=== PATIENT | male | born 1970 | race Caucasian/White ===

== ENCOUNTER 2018-11-01 16:43 | Inpatient (IN) | payer OTHER ==
--- NOTE | 2018-11-01 17:12 | ED ---
SOB HPI - General Chief Complaint: Shortness of Breath Stated Complaint: low oxygen Time Seen by Provider: 11/01/18 16:52 Source: patient Mode of arrival: ambulatory Limitations: no limitations - History of Present Illness Initial Comments: Dictation was produced using Create dictation software. please excuse any grammatical, word or spelling errors. Chief Complaint: Patient is a 48-year-old male sent in from urgent care for hypoxia. History of Present Illness: She is a 48-year-old male. He denies any comorbidities. Patient states for the last week has been feeling short of breath. Patient states he feels a little congested in his chest. He went to the urgent care today to be evaluated. They saw that his initial vitals showed 94% on room oxygen. Patient is given a breathing treatment. They repeated his oxygen saturation with the level of 92%. They did do a rapid strep test which was found to be negative. He was given a prescription for nystatin. They did not do any further workup. He was rapidly sent to the emergency department. Patient is still slightly short of breath. Patient denies any recent travel. Denies any history of blood clots. No lower extremity symptoms. Patient denies any chest pain. Patient has no family history of blood clot. The ROS documented in this emergency department record has been reviewed and confirmed by me. Those systems with pertinent positive or negative responses have been documented in the HPI. All other systems are other negative and/or noncontributory. PHYSICAL EXAM: General Impression: Alert and oriented x3, not in acute distress HEENT: Normocephalic atraumatic, extra-ocular movements intact, pupils equal and reactive to light bilaterally, mucous membranes moist. white ulcerations to the bilateral tonsils Cardiovascular: Heart regular rate and rhythm, S1&S2 audible, no murmurs, rubs or gallops Chest: Lungs clear to auscultation bilaterally, no rhonchi, no wheeze, no rales Abdomen: Bowel sounds present, abdomen soft, non-tender, non-distended, no organomegaly Musculoskeletal: Pulses present and equal in all extremities, no peripheral edema Motor: Power 5/5 bilaterally, no focal deficits noted Neurological: CN II-XII grossly intact, no focal motor or sensory deficits noted Skin: Intact with no visualized rashes Psych: Normal affect and mood ED course: 48-year-old male transferred from urgent care for hypoxia. Patient chief complaint is shortness of breath and chest congestion. Upon arrival shows 92% on room air. Patient appears comfortable at this time. Patient's heart rate is 95 Laboratory evaluation obtained. D-dimer 0.55. Patient is fully positive. Metabolic panel is unremarkable. Chest x-ray shows interstitial infiltrates showing mild pulmonary edema versus atypical pneumonitis. Patient does not appear to be in respiratory distress. Believe this is viral pneumonitis. Patient oxygen saturation mildly decreased. There is suspicion that this may be pneumonia. Patient given azithromycin. Patient be admitted for hypoxic respiratory failure. At this point pulmonary embolism is less likely given that he is fully positive and has positive x-ray findings. EKG interpretation: Ventricular rate 89, normal sinus rhythm, RI interval 1:30, QS 90, QTc 440. No RI prolongation, no QTC prolongation, no ST or T-wave changes noted. Overall, this EKG is unremarkable - Related Data Home Medications Medication Instructions Recorded Confirmed Nystatin 100,000 Unit/ml Susp 500,000 unit PO QID 11/01/18 11/01/18 [Mycostatin Oral Susp] Allergies Allergy/AdvReac Type Severity Reaction Status Date / Time No Known Allergies Allergy Verified 11/01/18 17:29 Review of Systems ROS Statement: Those systems with pertinent positive or pertinent negative responses have been documented in the HPI. ROS Other: All systems not noted in ROS Statement are negative. Past Medical History Past Medical History: No Reported History History of Any Multi-Drug Resistant Organisms: None Reported Past Surgical History: No Surgical Hx Reported Past Psychological History: No Psychological Hx Reported Smoking Status: Never smoker Past Alcohol Use History: None Reported Past Drug Use History: None Reported General Exam Limitations: no limitations Course Vital Signs 11/01/18 11/01/18 11/01/18 16:46 18:20 18:21 Temperature 97.7 F Pulse Rate 95 78 Respiratory 24 18 Rate Blood Pressure 149/85 136/85 O2 Sat by Pulse 92 L 88 L 96 Oximetry 11/01/18 19:47 Temperature 98.9 F Pulse Rate 80 Respiratory 15 Rate Blood Pressure 126/71 O2 Sat by Pulse 91 L Oximetry Medical Decision Making - Lab Data Result diagrams: 11/01/18 17:53 Lab Results 11/01/18 11/01/18 11/01/18 Range/Units 17:53 17:53 17:53 D-Dimer 0.55 (<0.60) mg/L FEU Sodium 141 (137-145) mmol/L Potassium 3.9 (3.5-5.1) mmol/L Chloride 106 (98-107) mmol/L Carbon Dioxide 21 L (22-30) mmol/L Anion Gap 14 mmol/L BUN 23 H (9-20) mg/dL Creatinine 0.70 (0.66-1.25) mg/dL Est GFR (CKD-EPI)AfAm >90 (>60 ml/min/1.73 sqM) Est GFR (CKD-EPI)NonAf >90 (>60 ml/min/1.73 sqM) Glucose 110 H (74-99) mg/dL Calcium 8.9 (8.4-10.2) mg/dL Influenza Type A RNA Detected H (Not Detectd) Influenza Type B (PCR) Not Detected (Not Detectd) Disposition Clinical Impression: Acute respiratory failure with hypoxia Disposition: ADMITTED IP TO THIS HOSP Condition: Fair Referrals: Ned Lamb MD [Primary Care Provider] - 1-2 days Decision Time: 19:59
[2018-11-01 18:19] LABS: Anion Gap 14 mmol/L; Blood Urea Nitrogen 23 mg/dL (9-20); Calcium 8.9 mg/dL (8.4-10.2); Carbon Dioxide 21 mmol/L (22-30); Chloride 106 mmol/L (98-107); Glucose 110 mg/dL (74-99); Potassium 3.9 mmol/L (3.5-5.1); Sodium 141 mmol/L (137-145)
--- NOTE | 2018-11-01 18:57 | XR ---
EXAMINATION TYPE: XR chest 2V DATE OF EXAM: 11/01/2018 COMPARISON: NONE HISTORY: Chest pain TECHNIQUE: Frontal and lateral views of the chest are obtained. FINDINGS: There are patchy reticular opacities throughout the lungs with more confluent right infrah ilar opacity and retrocardiac opacity. Cardiomediastinal silhouette is mildly enlarged. No sizable pn eumothorax or pleural effusion. Osseous structures appear intact. IMPRESSION: Interstitial opacities may represent mild pulmonary edema or atypical pneumonitis.
[2018-11-01] MEDS ORDERED: AZITHROMYCIN 500 MG in SODIUM CHLORIDE 0.9% 250 ML IVPB STA (19:36)
[2018-11-01] MEDS ORDERED: NALOXONE 0.4 MG/ML 1 ML VIAL IV PRN (19:59)
[2018-11-01 20:19] LABS: Basophils % (A) 0 %; Eosinophils % (A) 1 %; HCT 43.5 % (39.0-53.0); HGB 14.7 gm/dL (13.0-17.5); Lymphocytes # (A) 1.3 k/uL (1.0-4.8); Lymphocytes % (A) 24 %; MCHC 33.9 g/dL (31.0-37.0); MCV 85.7 fL (80.0-100.0); Mean Platelet Volume 9.3; Monocytes # (A) 0.4 k/uL (0-1.0); Monocytes % (A) 7 %; Neutrophils # (A) 3.5 k/uL (1.3-7.7); Neutrophils % (A) 63 %; Platelet Count 196 k/uL (150-450); RBC 5.08 m/uL (4.30-5.90); RDW 13.4 % (11.5-15.5); WBC 5.6 k/uL (3.8-10.6)
[2018-11-01 21:40] VITALS: BMI 37.1
[2018-11-02] MEDS ORDERED: AZITHROMYCIN 500 MG in SODIUM CHLORIDE 0.9% 250 ML IVPB SCH (14:15)
--- NOTE | 2018-11-02 14:31 | P.HPIM ---
History of Present Illness H&P Date: 11/02/18 Gelacio Washington is a 48-year-old male who presented to [facility] emergency room with a weeklong history of illness with upper respiratory infection, cough, low-grade fever, and malaise he was evaluated in the emergency room and had evidence of positive influenza A testing, he also had hypoxia was decreased O2 sat duration down to the 80s on room air, chest x- ray revealed also evidence of opacities suggestive of pneumonia, he was started on IV antibiotics, oral Tamiflu and was admitted to medical floor. Patient denies having any history of blood clots, he denies having any family history of blood clots, he denies having any chest pain. Patient denies having any significant past medical history he denies having any surgery in the past he denies ever smoking or using any kind of illicit drugs he denies drinking alcohol. Past Medical History Past Medical History: No Reported History History of Any Multi-Drug Resistant Organisms: None Reported Past Surgical History: No Surgical Hx Reported Past Anesthesia/Blood Transfusion Reactions: Unable to Obtain Additional Past Anesthesia/Blood Transfusion Reaction / Comment(s): Never had Anesthesia/ Blood Transfusion Past Psychological History: No Psychological Hx Reported Smoking Status: Never smoker Past Alcohol Use History: None Reported Past Drug Use History: None Reported - Past Family History Mother Family Medical History: Diabetes Mellitus Father Family Medical History: No Reported History Medications and Allergies Home Medications Medication Instructions Recorded Confirmed Type Nystatin 100,000 Unit/ml Susp 500,000 unit PO QID 11/01/18 11/01/18 History [Mycostatin Oral Susp] Allergies Allergy/AdvReac Type Severity Reaction Status Date / Time No Known Allergies Allergy Verified 11/01/18 17:29 Physical Exam Vitals: Vital Signs Temp Pulse Pulse Resp BP BP Pulse Ox 11/02/18 08:41 18 11/02/18 07:50 98.5 F 81 18 150/72 96 11/02/18 00:35 98.5 F 81 17 132/72 94 L 11/01/18 21:35 98.7 F 82 17 146/78 93 L 11/01/18 20:47 98.3 F 82 15 123/41 93 L 11/01/18 19:47 98.9 F 80 15 126/71 91 L 11/01/18 18:21 96 11/01/18 18:20 78 18 136/85 88 L 11/01/18 16:46 97.7 F 95 24 149/85 92 L Intake and Output 11/01/18 11/02/18 11/02/18 22:59 06:59 14:59 Intake Total 350 236 960 Balance 350 236 960 Intake: Intake, IV Titration 250 Amount Azithromycin 500 mg In 250 Sodium Chloride 0.9% 250 ml @ 250 mls/hr IVPB ONCE STA Rx#:[id number] Oral 100 236 960 Other: Weight 104.326 kg In general patient is alert and oriented 3 in no apparent distress HEENT head normocephalic and atraumatic Neck is supple no JVD no goiter no lymphadenopathy Chest exam reveals a few scattered crackles in both bases no wheezing Cardiac exam reveals regular heart sounds S1 and S2 no gallops no murmurs Abdomen is soft nontender no organomegaly was normal bowel sounds Extremity exam reveals no edema no cyanosis or clubbing Neurological examination reveals no gross focal deficit Results CBC & Chem 7: 11/01/18 17:53 11/01/18 17:53 Labs: Abnormal Lab Results - Last 24 Hours (Table) 11/01/18 11/01/18 Range/Units 17:53 17:53 Carbon Dioxide 21 L (22-30) mmol/L BUN 23 H (9-20) mg/dL Glucose 110 H (74-99) mg/dL Influenza Type A RNA Detected H (Not Detectd) Thrombosis Risk Factor Assmnt - Choose All That Apply Each Factor Represents 1 point: Age 41-60 years, Obesity (BMI >25) Other Risk Factors: No Other congenital or acquired thrombophilia - If yes, enter type in comment: No Thrombosis Risk Factor Assessment Total Risk Factor Score: 2 Thrombosis Risk Factor Assessment Level: Low Risk Assessment and Plan Plan: #1 influenza A #2 pneumonia, with bilateral patchy opacities, most prominent in the right infrahilar area #3 acute hypoxic respiratory failure At this time patient was started on oral Tamiflu 75 mg twice daily He was also started on IV antibiotic Rocephin and Zithromax Will check sputum culture and Gram stain We will add inhaled bronchodilators Recheck labs in a.m. Will follow closely
[2018-11-02] MEDS: OSELTAMIVIR 75 MG CAP PO SCH ×2 (14:44→20:24)
[2018-11-02] MEDS: ENOXAPARIN 40 MG/0.4 ML SYRINGE SQ SCH (14:53)
[2018-11-02] MEDS: CLOTRIMAZOLE TROCHE 10 MG TROCHE PO SCH ×2 (14:54→20:24)
[2018-11-02] MEDS: LEVOFLOXACIN 750 MG TAB PO SCH (17:34)
[2018-11-02] MEDS: FAMOTIDINE 20 MG TAB PO SCH (20:24)
--- NOTE | 2018-11-03 00:17 | CONS ---
CONSULTATION DATE OF SERVICE: 11/02/2018 REASON FOR FOLLOW UP: Acute influenza and pneumonia. HISTORY OF PRESENT ILLNESS: The patient is a 48 -year-old male who apparently presented to the Urgent Care for evaluation of shortness of breath and chest congestion and head cold. The patient said has been going on for about a week. The patient did have some throat. No significant runny nose or other URI symptoms. The patient also has a cough which is mild to moderate in intensity, bringing up occasional sputum but no hemoptysis. No chest pain. No nausea, vomiting. No diarrhea. The patient apparently was noticed to be hypoxic at the Urgent Care as the patient was advised to go to the [facility] ER with the patient has been evaluated by the ER physician on arrival to the ER. The patient did not have any fever. His white count elevated. Influenza A and B ordered and came back positive. The patient also did have a chest x-ray completed, which shows diffuse contused tissue consistent with mild pulmonary hitting or atypical pneumonitis. The patient was started on Tamiflu, Zosyn Zithromax, and admitted to the hospital. Infectious Disease was consulted for further recommendation regarding antibiotic therapy. REVIEW OF SYSTEMS: Positive points have been mentioned in HPI. Other systems has been negative. PAST MEDICAL HISTORY: No major illnesses. PAST SURGICAL HISTORY: No surgeries. SOCIAL HISTORY: Denies smoking, drinking, or drug use. FAMILY HISTORY: Mother with history of diabetes mellitus. ALLERGIES: No known drug allergies. MEDICATION: Include the patient is currently on Rocephin 1 g daily. He is on Mycelex cultures, Lovenox, Pepcid, Narcan 660 twice a day. PHYSICAL EXAMINATION: Blood pressure 157/72 with a pulse of 83. Temperature 98.4. He is 95% on room air. General description is a middle-aged male lying in bed in no distress. No tachypnea or accessory muscles of respiration use. HEENT: Shows no pallor or scleral icterus. Oral mucosa membranes are dry. No with neck trachea central no thyromegaly. Lungs unlabored breathing, decreased breath sounds in the bases. No wheeze or crackles. Heart S1, S2. Regular rate and rhythm. Abdomen soft. No tenderness no guarding extremities: No edema of the feet. Skin examination: No rash or mass palpable. Neurological: Patient is awake, alert, oriented. Mood and affect normal. LABS: Hemoglobin 14.8, white count 5.2, BUN of 23, creatinine 0.70 infection with positive. DIAGNOSTIC IMPRESSION: The patient admitted to the hospital with head congestion and head cold. The patient did have occasional sputum production with the diagnosis of acute influenza A and concern for possible secondary more likely community-acquired pneumonia. The patient physical examination or gram-positive pathogen and the patient . PLAN: 1. Will try to obtain sputum for Gram stain culture and sensitivity. 2. We will check a HIV test. 3. Continue patient on Rocephin, however switch Zithromax to Levaquin and Ceftin daily. 4. . 5. We will follow up on clinical condition and culture to further adjust medication if needed. Thank you for this consultation. We will follow this patient along with you. JAE / SEPIDEH: [id number] /
[2018-11-03] MEDS: CLOTRIMAZOLE TROCHE 10 MG TROCHE PO SCH ×6 (01:00→23:13)
[2018-11-03] MEDS: FAMOTIDINE 20 MG TAB PO SCH ×2 (07:11→21:27)
[2018-11-03] MEDS: OSELTAMIVIR 75 MG CAP PO SCH ×2 (07:11→21:27)
[2018-11-03] MEDS: ENOXAPARIN 40 MG/0.4 ML SYRINGE SQ SCH (07:11)
[2018-11-03 07:38] LABS: ALT 42 U/L (21-72); AST 44 U/L (17-59); Albumin 3.9 g/dL (3.5-5.0); Alkaline Phosphatase 75 U/L (38-126); Anion Gap 7 mmol/L; Blood Urea Nitrogen 15 mg/dL (9-20); Calcium 8.9 mg/dL (8.4-10.2); Carbon Dioxide 27 mmol/L (22-30); Chloride 110 mmol/L (98-107); Glucose 107 mg/dL (74-99); Potassium 3.7 mmol/L (3.5-5.1); Sodium 144 mmol/L (137-145); Total Protein 6.8 g/dL (6.3-8.2)
[2018-11-03 07:59] LABS: Basophils % (A) 0 %; Eosinophils # (A) 0.1 k/uL (0-0.7); Eosinophils % (A) 2 %; HGB 13.1 gm/dL (13.0-17.5); Lymphocytes # (A) 1.5 k/uL (1.0-4.8); Lymphocytes % (A) 29 %; MCH 28.8 pg (25.0-35.0); MCHC 32.8 g/dL (31.0-37.0); MCV 87.7 fL (80.0-100.0); Mean Platelet Volume 8.5; Monocytes # (A) 0.5 k/uL (0-1.0); Monocytes % (A) 9 %; Neutrophils # (A) 2.9 k/uL (1.3-7.7); Neutrophils % (A) 57 %; Platelet Count 206 k/uL (150-450); RBC 4.56 m/uL (4.30-5.90); RDW 13.4 % (11.5-15.5); WBC 5.1 k/uL (3.8-10.6)
--- NOTE | 2018-11-03 12:49 | P.PN ---
Subjective Progress Note Date: 11/03/18 Gelacio Washington is a 48-year-old male who presented to [facility] emergency room with a weeklong history of illness with upper respiratory infection, cough, low-grade fever, and malaise he was evaluated in the emergency room and had evidence of positive influenza A testing, he also had hypoxia was decreased O2 sat duration down to the 80s on room air, chest x- ray revealed also evidence of opacities suggestive of pneumonia, he was started on IV antibiotics, oral Tamiflu and was admitted to medical floor. Patient denies having any history of blood clots, he denies having any family history of blood clots, he denies having any chest pain. Patient denies having any significant past medical history he denies having any surgery in the past he denies ever smoking or using any kind of illicit drugs he denies drinking alcohol. On 11/03/2018 patient was seen and examined on the medical floor he is alert and oriented 3 in no apparent distress, he is complaining of cough and shortness of breath with activity otherwise no complaints, there is no fever or chills no headache or dizziness no chest pain no nausea or vomiting no abdominal pain no diarrhea and no urinary symptoms Objective - Vital Signs Vital signs: Vital Signs Temp 98.1 F 11/03/18 07:16 Pulse 82 11/03/18 07:16 Resp 16 11/03/18 07:16 BP 157/88 11/03/18 07:16 Pulse Ox 94 L 11/03/18 07:16 Intake & Output 11/02/18 11/03/18 11/03/18 18:59 06:59 18:59 Intake Total 1160 880 480 Balance 1160 880 480 Intake: Oral 960 880 480 Other 200 Other: # Voids 3 3 - Exam In general patient is alert and oriented 3 in no apparent distress HEENT head normocephalic and atraumatic Neck is supple no JVD no goiter no lymphadenopathy Chest exam reveals a few scattered crackles in both bases no wheezing Cardiac exam reveals regular heart sounds S1 and S2 no gallops no murmurs Abdomen is soft nontender no organomegaly was normal bowel sounds Extremity exam reveals no edema no cyanosis or clubbing Neurological examination reveals no gross focal deficit - Labs CBC & Chem 7: 11/03/18 06:55 11/03/18 06:55 Labs: Abnormal Lab Results - Last 24 Hours (Table) 11/03/18 Range/Units 06:55 Chloride 110 H (98-107) mmol/L Glucose 107 H (74-99) mg/dL Assessment and Plan Plan: #1 influenza A #2 pneumonia, with bilateral patchy opacities, most prominent in the right infrahilar area #3 acute hypoxic respiratory failure At this time patient was started on oral Tamiflu 75 mg twice daily He was also started on IV antibiotic Rocephin and Zithromax, antibiotic were changed to Rocephin and Levaquin by infectious disease Will check sputum culture and Gram stain We will add inhaled bronchodilators Recheck labs in a.m. Will follow closely
--- NOTE | 2018-11-03 17:44 | P.CNPUL ---
History of Present Illness Consult date: 11/03/18 Reason for consult: cough History of present illness: 48-year-old male patient, nonsmoker, started having a respiratory illness manifested itself is covered congestion chest that this over the past 24 hours. He presented to the hospital where the patient was found to have some limited infiltration of the lung bases. There was a screen was positive for influenza A. Start on Tamiflu. No hypoxemia currently on room air. No dyspnea at rest. No orthopnea. No swelling lower extremities. No hemoptysis. No pleurisy. No leukocytosis. No hypotension. No altered mentation. No other extra pulmonary manifestations related to influenza infection. Review of Systems Constitutional: Denies chills, Denies fever Eyes: denies as per HPI, denies blurred vision, denies bulging eye, denies decreased vision, denies diplopia, denies discharge, denies dry eye, denies irritation, denies itching, denies pain, denies photophobia, denies loss of peripheral vision, denies loss of vision, denies tunnel vision/blind spots Ears: deny: decreased hearing, ear discharge, earache, tinnitus Ears, nose, mouth and throat: Denies headache, Denies sore throat Cardiovascular: Reports dyspnea on exertion Respiratory: Reports cough Gastrointestinal: Reports as per HPI Genitourinary: Reports as per HPI Musculoskeletal: Reports as per HPI Musculoskeletal: absent: ankle pain, ankle stiffness, ankle swelling, as per HPI , elbow pain, elbow stiffness, elbow swelling, foot pain, foot stiffness, foot swelling, hand pain, hand stiffness, hand swelling, hip pain, hip stiffness, hip swelling, knee pain, knee stiffness, knee swelling, shoulder pain, shoulder stiffness, shoulder swelling, wrist pain, wrist stiffness, wrist swelling Integumentary: Reports as per HPI Neurological: Reports as per HPI Psychiatric: Reports as per HPI Endocrine: Reports as per HPI Hematologic/Lymphatic: Reports as per HPI Allergic/Immunologic: Reports as per HPI Past Medical History Past Medical History: No Reported History History of Any Multi-Drug Resistant Organisms: None Reported Past Surgical History: No Surgical Hx Reported Past Anesthesia/Blood Transfusion Reactions: Unable to Obtain Additional Past Anesthesia/Blood Transfusion Reaction / Comment(s): Never had Anesthesia/ Blood Transfusion Past Psychological History: No Psychological Hx Reported Smoking Status: Never smoker Past Alcohol Use History: None Reported Past Drug Use History: None Reported - Past Family History Mother Family Medical History: Diabetes Mellitus Father Family Medical History: No Reported History Medications and Allergies Home Medications Medication Instructions Recorded Confirmed Type Nystatin 100,000 Unit/ml Susp 500,000 unit PO QID 11/01/18 11/01/18 History [Mycostatin Oral Susp] Allergies Allergy/AdvReac Type Severity Reaction Status Date / Time No Known Allergies Allergy Verified 11/01/18 17:29 Physical Exam Vitals: Vital Signs Temp Pulse Resp BP Pulse Ox 11/03/18 15:17 98.5 F 85 16 146/85 95 11/03/18 07:16 98.1 F 82 16 157/88 94 L 11/03/18 00:20 17 11/03/18 00:05 98.5 F 73 17 127/78 94 L 11/02/18 20:05 83 17 11/02/18 19:30 98.4 F 83 17 157/78 95 Intake and Output 11/03/18 11/03/18 11/03/18 06:59 14:59 22:59 Intake Total 480 1060 Balance 480 1060 Intake: Oral 480 960 Other 100 Other: # Voids 3 3 In general patient is alert and oriented 3 in no apparent distress HEENT head normocephalic and atraumatic Neck is supple no JVD no goiter no lymphadenopathy Chest exam reveals a few scattered crackles in both bases no wheezing Cardiac exam reveals regular heart sounds S1 and S2 no gallops no murmurs Abdomen is soft nontender no organomegaly was normal bowel sounds Extremity exam reveals no edema no cyanosis or clubbing Neurological examination reveals no gross focal deficit Results - Laboratory Findings CBC and BMP: 11/03/18 06:55 11/03/18 06:55 PT/INR, D-dimer D-Dimer 0.55 mg/L FEU (<0.60) 11/01/18 17:53 Abnormal lab findings: Abnormal Labs 11/01/18 11/01/18 11/03/18 17:53 17:53 06:55 Chloride 110 H Carbon Dioxide 21 L BUN 23 H Glucose 110 H 107 H Influenza Type A RNA Detected H - Diagnostic Findings Chest x-ray: image reviewed Assessment and Plan Plan: Assessment 1 Acute pulmonary infection with influenza A/tracheal bronchitis, early pneumonia, recovering 2 acute hypoxic respiratory failure, recovering Plan Continue same antibiotics. Anticipate full recovery. May need to discontinue the Rocephin and keep the patient a combination of Levaquin and Tamiflu.
[2018-11-03] MEDS: LEVOFLOXACIN 750 MG TAB PO SCH (18:48)
[2018-11-03] MEDS ORDERED: ACETAMINOPHEN TAB 325 MG TAB PO PRN (21:26)
--- NOTE | 2018-11-04 04:57 | PN ---
PROGRESS NOTE DATE OF SERVICE: 11/03/2018. REASON FOR FOLLOWUP VISIT: 1. Acute influenza A. 2. Pneumonia. INTERVAL HISTORY: The patient is afebrile. He is feeling much better. His breathing has improved. Denies having any URI symptoms. No chest pain or shortness of breath. Patient with cough. No abdominal pain. No diarrhea. PHYSICAL EXAMINATION: Blood pressure 122/78 with a pulse of 93, temperature 98.8. He is 93% on room air. General description is a middle age male up in the chair in no distress. Respiratory system: Unlabored breathing with decreased breath sounds in the base, with no wheeze. Heart S1, S2. Regular rate and rhythm. Abdomen soft, no tenderness. LABS: Hemoglobin 13.1, white count 5.5. BUN of 15, creatinine 0.68. The sputum has been collected. DIAGNOSTIC IMPRESSION AND PLAN: Patient admitted to the hospital with acute influenza A with concern for possible pneumonia. The patient is currently covered with Tamiflu and Levaquin to continue , hopefully finish therapy with oral antibiotics. Continue supportive care. MMODL / IJN: [id number] /
[2018-11-04] MEDS: CLOTRIMAZOLE TROCHE 10 MG TROCHE PO SCH ×2 (05:26→12:31)
[2018-11-04 07:16] LABS: Basophils % (A) 0 %; Eosinophils # (A) 0.2 k/uL (0-0.7); Eosinophils % (A) 3 %; HCT 37.1 % (39.0-53.0); HGB 12.1 gm/dL (13.0-17.5); Lymphocytes # (A) 1.6 k/uL (1.0-4.8); Lymphocytes % (A) 28 %; MCH 28.4 pg (25.0-35.0); MCHC 32.6 g/dL (31.0-37.0); MCV 87.3 fL (80.0-100.0); Mean Platelet Volume 8.5; Monocytes # (A) 0.5 k/uL (0-1.0); Monocytes % (A) 9 %; Neutrophils # (A) 3.4 k/uL (1.3-7.7); Neutrophils % (A) 58 %; Platelet Count 221 k/uL (150-450); RBC 4.25 m/uL (4.30-5.90); RDW 13.6 % (11.5-15.5); WBC 5.9 k/uL (3.8-10.6)
[2018-11-04] MEDS: ENOXAPARIN 40 MG/0.4 ML SYRINGE SQ SCH (07:19)
[2018-11-04] MEDS: FAMOTIDINE 20 MG TAB PO SCH (07:19)
[2018-11-04] MEDS: OSELTAMIVIR 75 MG CAP PO SCH (07:19)
[2018-11-04 07:28] VITALS: BP 156/89; PULSE 79; RESP 16; TEMP 97.8
[2018-11-04 07:28] LABS: ALT 44 U/L (21-72); AST 39 U/L (17-59); Albumin 3.6 g/dL (3.5-5.0); Alkaline Phosphatase 65 U/L (38-126); Anion Gap 8 mmol/L; Blood Urea Nitrogen 16 mg/dL (9-20); Calcium 8.7 mg/dL (8.4-10.2); Carbon Dioxide 23 mmol/L (22-30); Chloride 111 mmol/L (98-107); Glucose 96 mg/dL (74-99); Potassium 3.8 mmol/L (3.5-5.1); Sodium 142 mmol/L (137-145); Total Bilirubin 0.9 mg/dL (0.2-1.3); Total Protein 6.5 g/dL (6.3-8.2)
--- NOTE | 2018-11-04 08:24 | XR ---
EXAMINATION TYPE: XR chest 2V DATE OF EXAM: 11/04/2018 COMPARISON: Prior chest x-ray 11/01/2018 HISTORY: Abnormal chest x-ray TECHNIQUE: Frontal and lateral views of the chest are obtained. FINDINGS: Cardiac mediastinal silhouette, pulmonary vascularity and susana are stable. No evident pneu mothorax or pleural effusion. Patchy bibasilar density is again noted. IMPRESSION: No significant interval change.
--- NOTE | 2018-11-04 12:54 | P.DS ---
Providers Date of admission: 11/01/18 19:59 Expected date of discharge: 11/04/18 Attending physician: Ned Lamb Consults: 11/02/18 14:04 Consult Physician Routine Consulting Provider: Darlyn Abdalla Consult Reason/Comments: influenza A, pneumonia Do you want consulting provider notified?: Yes 11/02/18 16:32 Consult Physician Routine Consulting Provider: Cayetano Alston Consult Reason/Comments: influenza A, pneumonia Do you want consulting provider notified?: Yes Primary care physician: Ned Lamb [facility] Course: Discharge diagnosis #1 influenza A. Patient will be continued on Tamiflu #2 pneumonia, with bilateral patchy opacities, most prominent in the right infrahilar area. Repeat chest x-ray showing no significant interval change. Patient has been cleared from pulmonary standpoint. Patient will be DC'd on Levaquin #3 acute hypoxic respiratory failure Hospital Course Gelacio Washington is a 48-year-old male who presented to [facility] emergency room with a weeklong history of illness with upper respiratory infection, cough, low-grade fever, and malaise he was evaluated in the emergency room and had evidence of positive influenza A testing, he also had hypoxia was decreased O2 sat duration down to the 80s on room air, chest x- ray revealed also evidence of opacities suggestive of pneumonia, he was started on IV antibiotics, oral Tamiflu and was admitted to medical floor. Patient denies having any history of blood clots, he denies having any family history of blood clots, he denies having any chest pain. Patient denies having any significant past medical history he denies having any surgery in the past he denies ever smoking or using any kind of illicit drugs he denies drinking alcohol. On 11/04/2018 patient is alert and oriented 3. Patient expresses is eager to go home. Patient is currently on room air. Patient feels much improved. Patient received 5 doses of Tamiflu. Will DC patient on 5 additional doses of Tamiflu plus Levaquin by mouth. Patient to follow-up with Dr. Lamb in 3 days. She has been cleared by pulmonary services. Patient previously on Tamiflu and Levaquin. This time patient denies chest pain or shortness of breath. Patient denies nausea vomiting or diarrhea. Patient denies any urinary burning or frequency. I performed an examination of the patient and discussed their management with the Nurse Practitioner. I have reviewed the Nurse Practitioner's notes and agree with the documented findings and plan of care Patient Condition at Discharge: Stable Plan - Discharge Summary Discharge Rx Participant: Yes New Discharge Prescriptions: New Levofloxacin [Levaquin] 500 mg PO DAILY 5 Days #5 tab Oseltamivir [Tamiflu] 75 mg PO Q12HR 3 Days #5 cap Continue Nystatin 100,000 Unit/ml Susp [Mycostatin Oral Susp] 500,000 unit PO QID Discharge Medication List Nystatin 100,000 Unit/ml Susp [Mycostatin Oral Susp] 500,000 unit PO QID [History] Levofloxacin [Levaquin] 500 mg PO DAILY 5 Days #5 tab 11/04/18 [Rx] Oseltamivir [Tamiflu] 75 mg PO Q12HR 3 Days #5 cap 11/04/18 [Rx] Follow up Appointment(s)/Referral(s): Ned Lamb MD [Primary Care Provider] - 1-2 days Darlyn Abdalla MD [STAFF PHYSICIAN] - 1 Week Activity/Diet/Wound Care/Special Instructions: Activity as tolerated Diet regular Discharge Disposition: HOME SELF-CARE
[2018-11-04 13:37] LABS: HIV P24 AG Non-Reactive (Non-Reactive)
[2018-11-04 13:38] LABS: HIV 1 AB Non-Reactive (Non-Reactive); HIV AB P24 Non-Reactive (Non-Reactive)
--- NOTE | 2018-11-04 17:16 | PN ---
PROGRESS NOTE DATE OF SERVICE: 11/04/2018 REASON FOR FOLLOWUP: 1. Acute influenza. 2. Pneumonia. INTERVAL HISTORY: The patient was seen on rounds early this afternoon. The patient has been afebrile. He is breathing much more comfortably. Patient denies having any chest pain. Minimal cough. No nausea, no vomiting, no abdominal pain and no diarrhea. PHYSICAL EXAMINATION: Blood pressure 156/89, pulse of 79, temperature 97.8. He is 94% on room air. General description is a middle-aged male lying in bed in no distress. RESPIRATORY SYSTEM: Unlabored breathing. Clear to auscultation anteriorly. HEART: S1, S2. Regular rate and rhythm. ABDOMEN: Soft. No tenderness. LABS: White count 5.9. DIAGNOSTIC IMPRESSION AND PLAN: 1. Patient with acute influenza, for which the patient will finish treatment with Tamiflu for a total of 5 days. 2. Patient with pneumonia; to be on a short course of oral Levaquin for about 5 days and close outpatient followup. Continue with supportive care. MMODL / IJN: [id number] /
== END 2018-11-04 14:10 | disposition home or self-care (01) | DRG 193 ==
LOC: EC 16:43 → 4SSUR 19:59
PROVIDERS: ADMIT Internal Medicine; ATTEND Internal Medicine
DX: J10.08 Influenza due to other identified influenza virus with other specified pneumonia (principal); J96.01 Acute respiratory failure with hypoxia; Z83.3 Family history of diabetes mellitus; Z79.899 Other long term (current) drug therapy; Z86.718 Personal history of other venous thrombosis and embolism; J40 Bronchitis, not specified as acute or chronic
CPT/HCPCS: 36415; 71046; 80048; 80053; 85025; 85379; 87390; 87502; 99285